=== PATIENT | male | born 1940 | race Caucasian/White ===

== ENCOUNTER 2020-01-24 11:59 | Emergency (ER) | payer OTHER ==
[~2020-01-24] VITALS: Ht 162.6 cm; Wt 74.8 kg
[2020-01-24 12:06] VITALS: BP_SYST 140
--- NOTE | 2020-01-24 12:09 | NUR ---
Patient to ER bed 03 to gown for evaluation. Side rails up.
--- NOTE | 2020-01-24 12:30 | NUR ---
Patient BIB BLS for mechanical fall from [facility]. Patient A&Ox3, skin pink and warm, Posterial occipital hematoma, pain 4/10, denies N/V/D.
--- NOTE | 2020-01-24 12:41 | NUR ---
ER at bedside examining patient.
--- NOTE | 2020-01-24 14:30 | NUR ---
Provided patient with hospital lunch (safety) tray, and made call to patients to inform PT in ER, per pt.
--- NOTE | 2020-01-24 16:07 | NUR ---
Whitley louis in [facility] - 01/24/20 at 1608 by SDEDTD PT TO RADIOLOGY WITH STAFF VIA DANIEL.
[2020-01-24 16:46] VITALS: BP_SYST 140
--- NOTE | 2020-01-24 16:46 | NUR ---
Patient to be transferred to [facility]. Is being transferred due to higher level of care. Receiving facility, [facility] Patient belongings will be sent with patient. Discharge Summary to be sent with patient. Report called to [facility] receiving facility. [facility] ambulance service has been called for transfer. ETA is 10 min.
== END 2020-01-24 16:46 | disposition home or self-care (01) ==
LOC: SED 11:59
DX: S13.4XXA Sprain of ligaments of cervical spine, initial encounter (principal); I50.9 Heart failure, unspecified; F41.9 Anxiety disorder, unspecified; G20 Parkinson's disease; Z88.0 Allergy status to penicillin; Z88.8 Allergy status to other drugs, medicaments and biological substances; W01.0XXA Fall on same level from slipping, tripping and stumbling without subsequent striking against object, initial encounter; Y93.89 Activity, other specified; Y92.89 Other specified places as the place of occurrence of the external cause; Y99.8 Other external cause status
CPT/HCPCS: 70450-TC; 72125-TC; 99285

== ENCOUNTER 2020-02-07 23:18 | Emergency (ER) | payer OTHER ==
[~2020-02-07] VITALS: Ht 175.3 cm; Wt 79.4 kg
[2020-02-07 23:22] VITALS: BP_SYST 111
[2020-02-07] MEDS ORDERED: KETOROLAC TROMETHAMINE 15 MG VIAL IM ONE (23:45)
[2020-02-08] MEDS ORDERED: MORPHINE 2 MG/ML INJ. SYRINGE IVP ONE (03:00)
[2020-02-08 03:32] VITALS: BP_SYST 109
== END 2020-02-08 03:32 | disposition home or self-care (01) ==
LOC: SED 23:18
DX: S22.32XA Fracture of one rib, left side, initial encounter for closed fracture (principal); F41.9 Anxiety disorder, unspecified; I50.9 Heart failure, unspecified; G20 Parkinson's disease; Z88.0 Allergy status to penicillin; Z88.8 Allergy status to other drugs, medicaments and biological substances; W01.0XXA Fall on same level from slipping, tripping and stumbling without subsequent striking against object, initial encounter; Y93.01 Activity, walking, marching and hiking; Y92.89 Other specified places as the place of occurrence of the external cause; Y99.8 Other external cause status
CPT/HCPCS: 71045; 71100; 96372 ×2; 99284; J1885; J2270

== ENCOUNTER 2020-04-06 10:46 | Emergency (ER) | payer BC, OTHER, SELFPAY ==
[~2020-04-06] VITALS: Ht 167.6 cm; Wt 68.0 kg
[2020-04-06 10:46] VITALS: BP_SYST 96
[~2020-04-06 10:46] MED LIST: CLON0.5T4 PO; COM200 PO; HYDR-4272 PO; OMEP40CA13 PO
--- NOTE | 2020-04-06 10:46 | NUR ---
BROUGHT IN BY [facility], PLACED IN BED #7 AND TRIAGED. REPORT GIVEN TO HUSSAIN
--- NOTE | 2020-04-06 10:48 | NUR ---
Patient rought in by ambulance in the ED c/o left shoulder pain s/p mechanical fall. Denied any chest pain or shortness of breath. Denied any fevers, chills, nausea or vomiting. Patient is alert and oriented x2, respirations even and unlabored, speaking in full sentences. VSS, pain level 7/10. Informed of the approximate wait time. Instructed to notify ED staff for any changes in condition or worsening of symptoms while waiting to be seen by an ED provider. Patient verbalized understanding.
--- NOTE | 2020-04-06 10:50 | NUR ---
ER Dr. Susan Cat at bedside examining patient.
--- NOTE | 2020-04-06 11:22 | NUR ---
X-ray done at bedside as ordered by Dr. Susan Cat. Patient tolerated the procedure well.
--- NOTE | 2020-04-06 11:25 | NUR ---
procedures tech at bedside collecting blood specimen as ordered by Dr. Susan Cat. Patient tolerated the procedure well.
--- NOTE | 2020-04-06 11:30 | NUR ---
Patient transported to radiology via gurney, accompanied by certified pharmacy technician
[2020-04-06 11:32] LABS: BASOPHILS # (AUTO) 0.1 K/uL (0.0-0.2); BASOPHILS % (AUTO) 0.8 % (0.0-2.0); EOSINOPHILS # (AUTO) 0.1 K/uL (0.0-0.4); EOSINOPHILS % (AUTO) 0.7 % (0.0-4.0); HEMATOCRIT 38.5 % (36-54); HEMOGLOBIN 12.7 g/dL (14.0-18.0); LYMPHOCYTES # (AUTO) 1.2 K/uL (1.0-5.5); LYMPHOCYTES % (AUTO) 11.1 % (20.5-51.5); MEAN CORPUSCULAR HEMOGLOBIN 30 pg (27-31); MEAN CORPUSCULAR HGB CONC 33 % (32-36); MEAN CORPUSCULAR VOLUME 92 fL (79.0-98.0); MONOCYTES # (AUTO) 0.8 K/uL (0.0-1.0); NEUTROPHILS % (AUTO) 80.4 % (40.0-70.0); PLATELET COUNT (AUTO) 303 K/uL (130-430); RED BLOOD CELL COUNT(AUTO) 4.19 MIL/uL (4.2-6.2); RED CELL DISTRIBUTION WIDTH 13.9 % (9.0-15.0); WHITE BLOOD COUNT (AUTO) 11.2 K/uL (4.8-10.8)
[2020-04-06 11:49] LABS: PROTHROMBIN TIME 10.6 SECS (9.5-12.5)
--- NOTE | 2020-04-06 11:52 | NUR ---
Patient is back from CT, in stable condition.
[2020-04-06 11:54] LABS: ALANINE AMINOTRANSFERASE 7 U/L (12-78); ANION GAP 6 (5-15); ASPARTATE AMINOTRANSFERASE 15 U/L (10-37); CALCIUM 8.5 mg/dL (8.4-11.0); CHLORIDE 101 mmol/L (98-107); CREATININE 1.35 mg/dL (0.55-1.30); GLUCOSE 190 mg/dL (70-99); POTASSIUM 3.8 mmol/L (3.5-5.1); SODIUM SERUM 136 mmol/L (136-145); TOTAL BILIRUBIN 0.6 mg/dL (0.0-1.0); UREA NITROGEN, BLOOD 20 mg/dL (8-21)
--- NOTE | 2020-04-06 13:46 | NUR ---
Spoke with Poly Hickey.
[2020-04-06 15:31] VITALS: BP_SYST 120
--- NOTE | 2020-04-06 15:32 | NUR ---
Patient given written and verbal discharge instructions and verbalizes understanding. ER MD discussed with patient the results and treatment provided. Patient in stable condition. ID arm band removed. Rx of [place] given. Patient educated on pain management and to follow up with PMD. Pain Scale 0/10. Opportunity for questions provided and answered. Medication side effect fact sheet provided.
== END 2020-04-06 15:32 | disposition home or self-care (01) ==
LOC: SED 10:46
DX: S42.012A Anterior displaced fracture of sternal end of left clavicle, initial encounter for closed fracture (principal); I50.9 Heart failure, unspecified; F41.9 Anxiety disorder, unspecified; G20 Parkinson's disease; Z79.899 Other long term (current) drug therapy; Z88.0 Allergy status to penicillin; Z91.018 Allergy to other foods; W18.39XA Other fall on same level, initial encounter; Y93.01 Activity, walking, marching and hiking; Y92.89 Other specified places as the place of occurrence of the external cause; Y99.8 Other external cause status
CPT/HCPCS: 36415; 72125-TC; 73030; 80053; 85025; 85610-TC; 85730-TC; 99285